=== PATIENT | female | born 1950 | race African-American/Black ===

== ENCOUNTER 2018-04-29 18:09 | Emergency (ER) | payer MEDICARE, BC ==
[~2018-04-29] VITALS: Ht 167.6 cm; Wt 88.9 kg
[2018-04-29] MEDS ORDERED: ONDANSETRON HCL INJ 2 MG/ML VIAL IV STA (18:16)
[2018-04-29] MEDS ORDERED: MORPHINE SULFATE INJ 4 MG/ML INJ IV ONE (18:30)
[2018-04-29] MEDS ORDERED: SODIUM CHLORIDE 0.9% 1000ML 1,000 ML IV ONE (18:30)
[2018-04-29] MEDS ORDERED: KETOROLAC TROMETHAMINE 30 MG/ML VIAL IV ONE (18:31)
[2018-04-29 21:01] VITALS: BP 170/100
== END 2018-04-29 21:07 | disposition home or self-care (01) ==
LOC: FSED 18:09
DX: R10.32 Left lower quadrant pain (principal); R11.0 Nausea
CPT/HCPCS: 74178; 80053; 80076; 85025; 96374; 96375; 99283; J1885; J2270; J2405; J7030

== ENCOUNTER 2020-10-04 15:56 | Emergency (ER) | payer MEDICARE, BC ==
[~2020-10-04] VITALS: Ht 167.6 cm; Wt 85.9 kg
[2020-10-04] MEDS ORDERED: PROPRANOLOL HCL60 M1 (16:12)
[2020-10-04] MEDS ORDERED: AMLODIPINE BESYL5 MG PO (16:12)
[2020-10-04] MEDS ORDERED: ELIQUIS5 MG (16:12)
[2020-10-04] MEDS ORDERED: METFORMIN HCL500 MG PO (16:12)
[2020-10-04] MEDS ORDERED: TETANUS/DIPHTHERIA TOX ADULT 0.5 ML SYR IM ONE (16:30)
[2020-10-04] MEDS ORDERED: TETANUS/DIPHTHERIA TOX ADULT 0.5 ML SYR ONE (16:33)
[2020-10-04] MEDS ORDERED: LIDOCAINE HCL 1% LOCAL INJ 20 ML VIAL INJ ONE (17:00)
[2020-10-04] MEDS ORDERED: BACITRACIN ZINC 0.9GM TP ONE ×3 (17:45→17:54)
[2020-10-04] MEDS ORDERED: LIDOCAINE HCL 1% LOCAL INJ 20 ML VIAL ONE (17:54)
== END 2020-10-04 17:37 | disposition home or self-care (01) ==
LOC: FSED 16:18
DX: S61.215A Laceration without foreign body of left ring finger without damage to nail, initial encounter (principal); W26.0XXA Contact with knife, initial encounter; Y92.000 Kitchen of unspecified non-institutional (private) residence as the place of occurrence of the external cause; I10 Essential (primary) hypertension; E11.9 Type 2 diabetes mellitus without complications; I48.91 Unspecified atrial fibrillation; Z85.3 Personal history of malignant neoplasm of breast
CPT/HCPCS: 12002; 90471; 90714; 96372; 99282; J2001

== ENCOUNTER 2022-04-08 12:14 | Emergency (ER) | payer MEDICARE, BC ==
[~2022-04-08] VITALS: Ht 167.6 cm; Wt 83.0 kg
[~2022-04-08 12:14] MED LIST: AMLODIPINE BESYL5 MG PO; ELIQUIS5 MG; METFORMIN HCL500 MG PO; PROPRANOLOL HCL60 M1
[2022-04-08] MEDS ORDERED: GLUCOSAMINE 1,1 EACH (13:36)
[2022-04-08] MEDS ORDERED: LETROZOLE2.5 MG (13:36)
[2022-04-08] MEDS ORDERED: ALENDRONATE SOD70 MG (13:36)
[2022-04-08] MEDS ORDERED: CEFUROXIME500 MG PO (13:39)
== END 2022-04-08 13:48 | disposition home or self-care (01) ==
LOC: FSED 12:41
DX: R30.0 Dysuria (principal); N39.0 Urinary tract infection, site not specified; E11.9 Type 2 diabetes mellitus without complications; I10 Essential (primary) hypertension; I48.91 Unspecified atrial fibrillation; Z85.3 Personal history of malignant neoplasm of breast
CPT/HCPCS: 81003; 87086; 87186; 99283

== ENCOUNTER 2022-04-29 12:23 | Emergency (ER) | payer MEDICARE, BC ==
[~2022-04-29] VITALS: Ht 167.6 cm; Wt 82.6 kg
[~2022-04-29 12:23] MED LIST changes: +ALENDRONATE SOD70 MG; +CEFUROXIME500 MG PO; +GLUCOSAMINE 1,1 EACH; +LETROZOLE2.5 MG
[2022-04-29] MEDS ORDERED: ONDANSETRON HCL INJ 2MG/ML 2ML 2 MG/ML VIAL IV ONE (12:45)
[2022-04-29] MEDS ORDERED: KETOROLAC TROMETHAMINE 30 MG/ML VIAL IV ONE (12:45)
[2022-04-29] MEDS ORDERED: ONDANSETRON HCL INJ 2MG/ML 2ML 2 MG/ML VIAL ONE (13:21)
[2022-04-29] MEDS ORDERED: KETOROLAC TROMETHAMINE 30 MG/ML VIAL ONE (13:21)
[2022-04-29] MEDS ORDERED: ZANAFLEX2 M1 PO (13:39)
== END 2022-04-29 13:46 | disposition home or self-care (01) ==
LOC: FSED 12:31
DX: R10.31 Right lower quadrant pain (principal); E11.9 Type 2 diabetes mellitus without complications; I10 Essential (primary) hypertension; I48.91 Unspecified atrial fibrillation; Z85.3 Personal history of malignant neoplasm of breast
CPT/HCPCS: 74176; 80053; 81003; 85025; 99284; J1885; J2405

== ENCOUNTER 2022-11-01 16:25 | Emergency (ER) | payer MEDICARE, BC ==
[~2022-11-01] VITALS: Ht 167.6 cm; Wt 83.1 kg
[~2022-11-01 16:25] MED LIST changes: -ELIQUIS5 MG; +ELIQUIS5 MG PO; +ZANAFLEX2 M1 PO
[2022-11-01] MEDS ORDERED: TRAMADOL HCL 50 MG TAB PO ONE (17:30)
[2022-11-01] MEDS ORDERED: CYCLOBENZAPRINE HCL 10 MG TAB PO ONE ×2 (17:30)
[2022-11-01] MEDS ORDERED: CYCLOBENZAPRINE HCL 10 MG TAB ONE (17:36)
[2022-11-01] MEDS ORDERED: TRAMADOL HCL 50 MG TAB ONE (17:37)
[2022-11-01] MEDS ORDERED: METHOCARBAMOL750 MG PO (18:17)
== END 2022-11-01 18:28 | disposition home or self-care (01) ==
LOC: FSED 16:33
DX: S16.1XXA Strain of muscle, fascia and tendon at neck level, initial encounter (principal); M62.838 Other muscle spasm; E11.65 Type 2 diabetes mellitus with hyperglycemia; I10 Essential (primary) hypertension; I48.91 Unspecified atrial fibrillation; D68.9 Coagulation defect, unspecified; I25.10 Atherosclerotic heart disease of native coronary artery without angina pectoris; E78.5 Hyperlipidemia, unspecified; K21.9 Gastro-esophageal reflux disease without esophagitis; Z85.3 Personal history of malignant neoplasm of breast
CPT/HCPCS: 70360; 99283

== ENCOUNTER 2022-11-04 11:21 | Emergency (ER) | payer MEDICARE, BC ==
[~2022-11-04] VITALS: Ht 167.6 cm; Wt 81.4 kg
[~2022-11-04 11:21] MED LIST changes: +METHOCARBAMOL750 MG PO
[2022-11-04] MEDS ORDERED: KETOROLAC TROMETHAMINE 30 MG/ML VIAL IV STA (12:51)
[2022-11-04] MEDS ORDERED: KETOROLAC TROMETHAMINE 30 MG/ML VIAL ONE (13:23)
[2022-11-04] MEDS ORDERED: CEFDINIR300 MG PO (15:22)
[2022-11-04] MEDS ORDERED: KETOROLAC TROME10 MG PO (15:25)
[2022-11-04] MEDS ORDERED: CEFTRIAXONE 1 GM VIAL ONE (15:30)
== END 2022-11-04 15:39 | disposition home or self-care (01) ==
LOC: FSED 11:32
DX: R06.02 Shortness of breath (principal); R07.89 Other chest pain; J18.9 Pneumonia, unspecified organism; E11.65 Type 2 diabetes mellitus with hyperglycemia; I10 Essential (primary) hypertension; E78.5 Hyperlipidemia, unspecified; I48.91 Unspecified atrial fibrillation; I25.10 Atherosclerotic heart disease of native coronary artery without angina pectoris; K21.9 Gastro-esophageal reflux disease without esophagitis; R94.31 Abnormal electrocardiogram [ECG] [EKG]; Z85.3 Personal history of malignant neoplasm of breast
CPT/HCPCS: 71046; 80053; 81003; 82553; 84484; 85025; 87400; 93005; 96374; 99284; J0696; J1885

== ENCOUNTER 2023-01-29 14:46 | Emergency (ER) | payer MEDICARE, BC ==
[~2023-01-29] VITALS: Ht 167.6 cm; Wt 77.6 kg
[~2023-01-29 14:46] MED LIST changes: +CEFDINIR300 MG PO; +KETOROLAC TROME10 MG PO
[2023-01-29] MEDS ORDERED: METOPROLOL TARTRATE 50 MG TAB ONE (15:30)
[2023-01-29] MEDS ORDERED: METOPROLOL TARTRATE 25 MG TAB PO ONE (15:45)
[2023-01-29] MEDS ORDERED: METOPROLOL TARTRATE 50 MG TAB PO ONE (16:00)
== END 2023-01-29 15:56 | disposition home or self-care (01) ==
LOC: FSED 15:03
DX: R00.2 Palpitations (principal); R00.0 Tachycardia, unspecified; E11.65 Type 2 diabetes mellitus with hyperglycemia; I10 Essential (primary) hypertension; I48.91 Unspecified atrial fibrillation; I25.10 Atherosclerotic heart disease of native coronary artery without angina pectoris; E78.5 Hyperlipidemia, unspecified; K21.9 Gastro-esophageal reflux disease without esophagitis; R94.31 Abnormal electrocardiogram [ECG] [EKG]; Z85.3 Personal history of malignant neoplasm of breast
CPT/HCPCS: 80053; 82553; 84484; 85025; 93005; 99283

== ENCOUNTER 2024-05-26 16:26 | Emergency (ER) | payer MEDICARE, BC ==
[~2024-05-26] VITALS: Ht 167.6 cm; Wt 84.8 kg
[2024-05-26] MEDS: KETOROLAC TROMETHAMINE 30 MG/ML VIAL IV ONE (17:37)
[2024-05-26 18:09] VITALS: PULSE 96; RESP 16; TEMP 98.3; O2SAT 99
[2024-05-26] MEDS ORDERED: CYCLOBENZAPRINE10 MG PO (18:13)
== END 2024-05-26 18:21 | disposition home or self-care (01) ==
LOC: FSED 16:33
DX: M54.41 Lumbago with sciatica, right side (principal); E11.65 Type 2 diabetes mellitus with hyperglycemia; I10 Essential (primary) hypertension; I48.91 Unspecified atrial fibrillation; I25.10 Atherosclerotic heart disease of native coronary artery without angina pectoris; E78.5 Hyperlipidemia, unspecified; K21.9 Gastro-esophageal reflux disease without esophagitis; Z85.3 Personal history of malignant neoplasm of breast; Z87.19 Personal history of other diseases of the digestive system
CPT/HCPCS: 74176; 80048; 81003; 85025; 99284; J1885